=== PATIENT | female | born 1980 | race Caucasian/White ===

== ENCOUNTER 2024-08-28 11:51 | Observation (INO) ==
[2024-08-28] MEDS: NOZIN NASAL SANITIZER TP ONE (12:15)
[2024-08-28] MEDS: FENTANYL VIAL INJ 100 mcg ONE (12:31)
[2024-08-28] MEDS: VERSED ONE (12:31)
[2024-08-28] MEDS: KETAMINE HCL ONE (12:31)
[2024-08-28] MEDS: LR 1,000 ML IV 1,000 ML IV ONE (12:33)
[2024-08-28] MEDS: ZOFRAN INJ 4 MG VIAL ONE (12:39)
[2024-08-28] MEDS: DECADRON INJ ONE (12:39)
[2024-08-28] MEDS: REGLAN INJ 10 MG VIAL ONE (12:39)
[2024-08-28] MEDS: DIPRIVAN VIAL 20 ML ONE (12:39)
[2024-08-28 12:43] VITALS: BMI 27.3
[2024-08-28] MEDS: PEPCID 20 MG VIAL ONE (12:43)
[2024-08-28] MEDS ORDERED: ULTANE GAS IN ONE (12:45)
[2024-08-28] MEDS ORDERED: XYLOCAINE 2 % (PLAIN) ONE (12:45)
[2024-08-28] MEDS ORDERED: REGLAN INJ 10 MG VIAL ONE (12:50)
[2024-08-28] MEDS ORDERED: PEPCID 20 MG VIAL ONE (12:50)
[2024-08-28] MEDS ORDERED: FENTANYL VIAL INJ 100 mcg ONE (12:50)
[2024-08-28] MEDS ORDERED: PRECEDEX INJ VIAL ONE (12:50)
[2024-08-28] MEDS ORDERED: KETAMINE HCL ONE (12:50)
[2024-08-28] MEDS ORDERED: ZOFRAN INJ 4 MG VIAL ONE (12:50)
[2024-08-28] MEDS ORDERED: DIPRIVAN VIAL ONE (12:50)
[2024-08-28] MEDS ORDERED: VERSED ONE (12:50)
[2024-08-28] MEDS ORDERED: ROBINUL ONE (12:50)
[2024-08-28] MEDS ORDERED: DECADRON INJ ONE (12:50)
[2024-08-28] MEDS ORDERED: BARHEMSYS INJ IVP PRN (12:51)
[2024-08-28] MEDS ORDERED: BENADRYL INJ 50 MG VIAL IVP PRN (12:51)
[2024-08-28] MEDS ORDERED: ZOFRAN INJ 4 MG VIAL IVP PRN ×2 (12:51→15:15)
[2024-08-28] MEDS: ANCEF VIAL 1 GRAM ONE (13:03)
[2024-08-28] MEDS: OFIRMEV IV 1000 MG VIAL 1,000 MG/100 ML VIAL IV ONE (13:23)
[2024-08-28] MEDS: MARCAINE 0.25% INJ ONE (13:35)
[2024-08-28] MEDS ORDERED: DILAUDID INJ ONE (14:25)
[2024-08-28] MEDS: DILAUDID INJ IVP PRN ×2 (14:50→19:08)
[2024-08-28] MEDS: DILAUDID INJ ONE (15:07)
[2024-08-28] MEDS ORDERED: TYLENOL 325 MG TAB PO PRN (15:15)
[2024-08-28] MEDS: NS 1,000 ML IV 1,000 ML IV SCH (16:44)
[2024-08-28] MEDS: COLACE CAP 100 MG PO SCH (20:30)
[2024-08-29 05:48] LABS: BLOOD UREA NITROGEN 2 mg/dL (7-18); CALCIUM 8.1 mg/dL (8.5-10.1); CARBON DIOXIDE 26.3 mmol/L (21-32); CHLORIDE 106 mmol/L (98-107); COR NA(FOR HYPERGLY) 141 mmol/L (136-145); CREATININE 0.64 mg/dL (0.55-1.02); GLUCOSE 117 mg/dL (65-99); POTASSIUM 3.2 mmol/L (3.5-5.1); SODIUM 141 mmol/L (136-145); eGFR NON BLACK RACES > 60 (>60)
[2024-08-29] MEDS: PERCOCET TAB 5/325 MG PO PRN (07:26)
[2024-08-29] MEDS: ROBINUL ONE (07:46)
--- NOTE | 2024-08-29 08:41 | NOTE.SOAP ---
Soap Note Note for Day of Date of Exam: 08/29/24 Subjective Data Subjective Data: Patient is POD#1 hardware removal, calcaneal osteotomy, debridement of peroneal tendon, and scar revision to left foot. She only had dilaudid through night time. No scheduled percocet, even though order in. She got 10mg percocet this morning. She denies any nausea, vomiting, fevers, chills, shortness of breath, chest pain, calf pain, denies any profuse sweating. Objective Data Objective Data: Left Lower Extremity Exam: Dressing taken down. Surgical incisions intact. No hematoma noted underneath. Redressed with 4x4s, ABD, Webroll, ANNA and splint that was well padded. No signs or symptoms concerning for DVT or PE. Assessment Assessment: Patient is POD#1 hardware removal, calcaneal osteotomy, debridement of peroneal tendon, and scar revision to left foot Plan Plan: - NWB to LLE, she has crutches, knee scooter at home. - Rx in chart for Percocet, Aspirin, and Zofran. - Follow-up Appointment in chart. - Keep dressing clean, dry and intact. - Okay for discharge from my standpoint. She has been seen by Dr. Oquendo this morning and he says she is good to go.
[2024-08-29 08:47] VITALS: BP 117/71; PULSE 85; RESP 20; TEMP 98.3; O2SAT 100
[2024-08-29] MEDS: PERCOCET TAB 5/325 MG PO ONE (08:58)
[2024-08-29] MEDS: LOVENOX INJ 40 MG SYR SC SCH (08:58)
== END 2024-08-29 11:30 | disposition home or self-care (01) ==
LOC: SURG1 11:51 → MED/SURG 11:51
PROVIDERS: ADMIT Obstetrics & Gynecology Obstetrics; ATTEND Obstetrics & Gynecology Obstetrics
PROC: HARDREM (ICD-10-PCS; 2024-08-28 12:55)
DX: T84.84XA Pain due to internal orthopedic prosthetic devices, implants and grafts, initial encounter; M21.6X2 Other acquired deformities of left foot; G89.18 Other acute postprocedural pain; M66.362 Spontaneous rupture of flexor tendons, left lower leg